=== PATIENT | female | born 1995 ===

== ENCOUNTER 2022-03-23 23:49 | Emergency (ER) | payer OTHER, BC ==
[2022-03-24] MEDS: Diphtheria,Pertussis(Acell),Tetanus Vaccine 0.5 ML SDV IM ONE (00:30)
== END 2022-03-24 00:50 | disposition home or self-care (01) ==
LOC: LB.ED 23:49
DX: S01.112A Laceration without foreign body of left eyelid and periocular area, initial encounter (principal); Z23 Encounter for immunization; Z79.899 Other long term (current) drug therapy; V86.35XA Unspecified occupant of 3- or 4- wheeled all-terrain vehicle (ATV) injured in traffic accident, initial encounter; Y92.410 Unspecified street and highway as the place of occurrence of the external cause
CPT/HCPCS: 12013; 90715; 99282